=== PATIENT | female | born 1965 | race Caucasian/White ===

== ENCOUNTER 2020-04-08 05:26 | Inpatient (IN) | payer BC ==
[2020-04-08] MEDS ORDERED: Acetaminophen 500 MG Tab PO ONE (05:45)
[2020-04-08] MEDS ORDERED: Scopolamine 1.5 MG Transdermal Patch TOP ONE (05:45)
[2020-04-08] MEDS ORDERED: Celecoxib 200 MG Cap PO ONE (05:45)
[2020-04-08] MEDS ORDERED: Gabapentin 300 MG Cap PO ONE (05:45)
[2020-04-08] MEDS ORDERED: Diltiazem 120 MG Cap.CD PO ONE (06:00)
[2020-04-08] MEDS ORDERED: Dextrose 5%-Lactated Ringers 1,000 ML IV SCH (06:30)
[2020-04-08] MEDS ORDERED: cefOXitin 2 GM Vial ONE (06:36)
[2020-04-08] MEDS ORDERED: Propofol 200 MG/20 ML SDV ONE (07:05)
[2020-04-08] MEDS ORDERED: Rocuronium 50 MG/5 ML Vial ONE (07:05)
[2020-04-08] MEDS ORDERED: fentaNYL 250 MCG/5 ML SDV ONE ×2 (07:05→08:00)
[2020-04-08] MEDS ORDERED: Ondansetron 4 MG/2 ML SDV ONE (07:05)
[2020-04-08] MEDS ORDERED: Glycopyrrolate 0.2 MG/ML 5 ML MDV ONE (07:05)
[2020-04-08] MEDS ORDERED: Succinylcholine 200 MG/10 ML MDV ONE (07:05)
[2020-04-08] MEDS ORDERED: Neostigmine Methylsulfate 1 MG/ML 5 ML Syringe ONE (07:05)
[2020-04-08] MEDS ORDERED: Dexamethasone 4 MG/ML SDV ONE (07:05)
[2020-04-08] MEDS ORDERED: Albuterol/Ipratropium 3.0-0.5 MG/3 ML Neb Soln NEB ONE (07:15)
[2020-04-08] MEDS ORDERED: Ketamine 500 MG/5 ML MDV IV SCH (08:00)
[2020-04-08] MEDS ORDERED: Magnesium Sulfate 3 GM in Sodium Chloride 0.9% 100 ML IV SCH (08:00)
[2020-04-08] MEDS ORDERED: Ketamine 50 MG in Sodium Chloride 0.9% 49.5 ML IV SCH (08:00)
[2020-04-08] MEDS ORDERED: Labetalol 100 MG/20 ML MDV ONE (08:00)
[2020-04-08] MEDS ORDERED: hydrOXYzine HCL 100 MG/2 ML SDV IM ONE (10:06)
[2020-04-08] MEDS: Dextrose 5%-Lactated Ringers 1,000 ML IV SCH ×2 (10:45→19:54)
[2020-04-08] MEDS: Lactated Ringers 1,000 ML IV SCH (10:45)
[2020-04-08] MEDS ORDERED: Metoclopramide 10 MG/2 ML SDV IV PRN (10:50)
[2020-04-08] MEDS ORDERED: Cyclobenzaprine 10 MG Tab PO PRN (11:08)
[2020-04-08] MEDS: cefOXitin 2 GM in Sodium Chloride 0.9% 50 ML IV ONE ×2 (11:42→11:49)
[2020-04-08] MEDS ORDERED: hydrOXYzine HCL 100 MG/2 ML SDV IM PRN (12:00)
[2020-04-08] MEDS ORDERED: Acetaminophen 500 MG Tab PO PRN (12:00)
[2020-04-08] MEDS ORDERED: Glucagon,Human Recombinant 1 MG Vial IM PRN (12:00)
[2020-04-08] MEDS ORDERED: Pantoprazole 40 MG Vial IVPUSH SCH (12:00)
[2020-04-08] MEDS ORDERED: Labetalol 20 MG/4 ML Syringe IVPUSH PRN (12:00)
[2020-04-08] MEDS ORDERED: HYDROmorphone 1 MG/ML Syringe IV PRN (12:00)
[2020-04-08] MEDS ORDERED: Calcium Gluconate 10% 1 GM/10 ML SDV IVPUSH PRN (12:00)
[2020-04-08] MEDS ORDERED: diphenhydrAMINE 50 MG/ML SDV IVPUSH PRN (12:00)
[2020-04-08] MEDS ORDERED: Ondansetron 4 MG/2 ML SDV IVPUSH PRN (12:00)
[2020-04-08] MEDS ORDERED: oxyCODONE 5 MG Tab PO PRN (12:00)
[2020-04-08] MEDS ORDERED: 50% Dextrose in Water 50 ML Syringe IVPUSH PRN (12:00)
[2020-04-08] MEDS: HYDROmorphone 0.5 MG/0.5 ML Syringe IVPUSH PRN ×2 (12:47→20:48)
[2020-04-08] MEDS: Acetaminophen 500 MG Tab PO SCH ×2 (14:33→21:47)
[2020-04-08] MEDS: cefOXitin 2 GM in Sodium Chloride 0.9% 50 ML IV SCH ×2 (14:34→19:56)
[2020-04-08] MEDS ORDERED: MVI, Adult with Vitamin K 10 ML, Thiamine 200 MG, Chromium/Copper/Mang/Selen/Zn 1 ML in... IV SCH ×4 (16:00)
[2020-04-08] MEDS: Heparin Sodium 5,000 Units/ML Vial SUBCUT SCH (16:33)
[2020-04-08] MEDS: Insulin Lispro 100 Unit/ML 3 ML KwikPen SUBCUT PRN ×2 (16:40→21:46)
[2020-04-09] MEDS: Lactated Ringers 1,000 ML IV SCH (01:26)
[2020-04-09] MEDS: cefOXitin 2 GM in Sodium Chloride 0.9% 50 ML IV SCH ×2 (02:01→07:57)
[2020-04-09] MEDS ORDERED: Iopamidol 612 MG/ML 50 ML SDV PO ONE (02:08)
[2020-04-09] MEDS: HYDROmorphone 0.5 MG/0.5 ML Syringe IVPUSH PRN (02:44)
[2020-04-09] MEDS: Insulin Lispro 100 Unit/ML 3 ML KwikPen SUBCUT PRN (04:56)
[2020-04-09] MEDS: Heparin Sodium 5,000 Units/ML Vial SUBCUT SCH ×2 (04:56→15:24)
[2020-04-09] MEDS: Acetaminophen 500 MG Tab PO SCH ×3 (05:01→21:30)
[2020-04-09] MEDS ORDERED: Ondansetron 4 MG Tab.DIS PO PRN (07:38)
[2020-04-09] MEDS ORDERED: hydrOXYzine HCl 25 MG Tab PO PRN (07:40)
[2020-04-09] MEDS: Celecoxib 200 MG Cap PO SCH ×2 (08:00→21:30)
--- NOTE | 2020-04-09 09:11 | CR ---
[facility] HISTORY: Postbariatric surgery FINDINGS: Patient swallowed water-soluble contrast. Upright views of the abdomen show no evidence of extravasation or obstruction. There is a left upper quadrant drain. IMPRESSION: Status post bariatric surgery No extravasation or obstruction seen
[2020-04-09] MEDS: SCOPOLAMINE PATCH CHECK TOP SCH (10:40)
--- NOTE | 2020-04-09 10:55 | PN ---
DATE OF SERVICE: 04/09/2020 SUBJECTIVE: Nela is postoperative day 1. Vital signs have been stable. Upper GI was normal. Oral intake 840. Urine output 3600. CHIDI drain put out 130 mL of a light pink drainage. She has been up ambulating. Pain has been controlled per energy protocol. REVIEW OF SYSTEMS: Remainder of review of systems negative for any pertinent positives or negatives. OBJECTIVE: GENERAL: Nela is a pleasant 55-year-old female. VITAL SIGNS: Height is 5 feet 5 inches, weight is 234 pounds. TPR at 0751, 97.7, 75, 16. Blood pressure 134/61. HEENT: Negative. NECK: Supple. HEART: Regular rate and rhythm. LUNGS: Clear. ABDOMEN: Dressings dry and intact. Abdominal binder is on. CHIDI drain is as above. EXTREMITIES: Without peripheral edema. ASSESSMENT: Laparoscopic Michelle-en-Y gastric bypass surgery, liver biopsy, repair of diaphragmatic hernia for morbid obesity, hepatomegaly, and diaphragmatic hernia. Date of surgery 04/08/2020. Surgeon: Victoriano Calle MD. PLAN: 1. Decrease IV to D5 of lactated Ringer's to 100 mL per hour. 2. Dressing off, may shower. 3. Step 2 with no cereal, gastric bypass diet. 4. Atarax 25 mg q.4 hours p.r.n. pain. 5. Zofran ODT 4 mg every 4 hours p.r.n. nausea. 6. Communication order: 3 med cups per hour or 1 every 20 minutes, record at bedside. 7. We will evaluate p.r.n. or in a.m. Joelle Contreras PA-C /[id number]
[2020-04-09] MEDS ORDERED: Pantoprazole 40 MG Delayed-Release Granules 1 Packet PO SCH (11:00)
[2020-04-09] MEDS ORDERED: MVI, Adult with Vitamin K 10 ML, Thiamine 200 MG, Chromium/Copper/Mang/Selen/Zn 1 ML in... IV SCH ×4 (16:00)
[2020-04-10] MEDS: Heparin Sodium 5,000 Units/ML Vial SUBCUT SCH (05:08)
[2020-04-10] MEDS: Acetaminophen 500 MG Tab PO SCH (05:08)
[2020-04-10] MEDS: SCOPOLAMINE PATCH CHECK TOP SCH (08:22)
[2020-04-10] MEDS: Celecoxib 200 MG Cap PO SCH (08:22)
[2020-04-10] MEDS ORDERED: Cyanocobalamin (Vitamin B12) 1,000 MCG/ML SDV IM ONE (09:00)
--- NOTE | 2020-04-12 11:03 | DISCH ---
FINAL DIAGNOSES: 1. Morbid obesity. 2. Type 2 diabetes mellitus. 3. History of depression. 4. History of hyperlipidemia. 5. History of hypertension. 6. History of urinary retention. 7. Moderate obstructive sleep apnea. 8. Marked hepatomegaly. 9. Paraesophageal diaphragmatic hernia. OPERATIVE PROCEDURES: Done on 04/08/2020. 1. Laparoscopic Michelle-en-Y gastric bypass. 2. Fito-Cut needle liver biopsy. 3. Repair of paraesophageal diaphragmatic hernia. SUMMARY: This is a 55-year-old female presenting with longstanding morbid obesity and increasingly significant comorbidities. After preoperative evaluation and discussion, she did wish to proceed with a gastric bypass procedure. This was done on the day of admission without any difficulty. She had fairly marked hepatomegaly and liver biopsies were obtained which were pending and also had paraesophageal diaphragmatic hernia which was repaired concurrently. Postoperatively, the patient has done well. She is off her glipizide and running blood sugars in the 130 to 140 range, so her diabetes at this point is already going into remission, and otherwise she is able to tolerate step 2 diet. She should be following up with Joelle Contreras at [facility] on 04/19/2020. She should continue her usual home medications except we will hold the glipizide and we will have her hold the vitamins and other supplements until after the first appointment. She is taking Celebrex and Tylenol for pain and not requiring any narcotics at the time of discharge.
--- NOTE | 2020-04-13 13:29 | OR ---
DATE OF PROCEDURE: 04/08/2020 SURGEON: Victoriano Calle MD PREOPERATIVE DIAGNOSIS: Morbid obesity. POSTOPERATIVE DIAGNOSES: 1. Morbid obesity. 2. Marked hepatomegaly. 3. Paraesophageal diaphragmatic hernia. OPERATIVE PROCEDURE: 1. Laparoscopic Michelle-en-Y gastric bypass with long limb gastroenterostomy (41220). 2. Fito-Cut needle liver biopsy (85552). 3. Repair of paraesophageal diaphragmatic hernia (63311). ANESTHESIA: General. ELECTRICAL ESTIMATOR: Joelle Contreras PA-C INDICATIONS FOR PROCEDURE: This is a 55-year-old female presenting with longstanding morbid obesity and increasingly significant comorbidities. After preoperative evaluation and discussion, she wished to proceed with a gastric bypass procedure. Potential risks of the procedure including bleeding, infection, leaks from various GI tract closures, problems with bowel obstruction over time as well as the possibility of cardiopulmonary, septic, or hemorrhagic complications leading to were discussed, and the patient wishes to proceed. DETAILS OF PROCEDURE: The patient was taken to the operating room and placed in the supine position after general endotracheal anesthesia was induced. She was converted to a lithotomy position and the abdomen prepped and draped. At 15 cm inferior and 5 cm left of the xiphoid process, a transverse incision was made and the peritoneal cavity entered under direct vision with an Optiview trocar, inflated to 15 mmHg pressure with CO2. Laparoscope was reinserted. No underlying trocar insertion site injuries were seen. Following this, 5 additional trocars were placed across the upper and mid abdomen. Bilateral transversus abdominis plane blocks were placed. Initial examination showed marked hepatomegaly with the liver being roughly 2 to 3 times normal in terms of size and grossly fatty infiltrated. Fito- Cut needle biopsies were obtained from the left lobe of the liver. Minimal bleeding from the biopsy sites was controlled with electrocautery. The omentum was then divided in the midline up to the level of the transverse colon. This allowed identification of the small bowel to the ligament of Treitz. Small bowel was then traced out 150 cm distal to that point, was divided transversely with a TONY stapler. Small bowel was then traced out additional 150 cm where the [id number] enteroenterostomy was accomplished with internal firing of the Endo-TONY 60 mm stapler, common opening was closed transversely with the same stapler, angles of the anastomosis and mesenteric defect approximated with some 0 Ethibond stitch along with fibrin sealant. The divided end of Michelle limb was then from the mesentery for a few centimeters, which allowed an antecolic position of the Michelle limb up to the level of the gastroesophageal junction without tension. The liver was then retracted anteriorly and the patient was noted to have a moderate-sized paraesophageal diaphragmatic hernia. This contained some perigastric fat and a tongue of omentum. The hernia was reduced and the peritoneum overlying incised and reflected downward. Anterior repair of the diaphragmatic hernia with 0 Ethibond sutures reinforced with PTFE pledgets was then accomplished. Gastrointestinal balloon catheter was then inflated to 15 mL and pulled up snugly against the EG junction. The gastric wall over the apex balloon was then marked with electrocautery and balloon catheter deflated and pulled up from the esophagus. The lesser omental tissue adjacent to the gastric cardia was incised, allowing dissection behind the stomach at the level of the gastric cardia. The pouch formation was initiated with transverse firing of the TONY stapler at the level of the cauterized rose marie on the gastric cardia. The pouch was then completed with 2 additional firings of the TONY stapler up to and through the angle of His. Upon completion of the pouch, both staple lines were noted to be intact. The anvil of a 25 mm EEA stapler was then attached to the Morehouse sump type tube, that was brought down through the mouth, taken out through a small opening in the gastric pouch, allowing the anvil likewise to be pulled down to within the gastric pouch. The divided end of the Michelle limb was then opened and the main body of the EEA stapler was passed several centimeters into the lumen of small bowel, brought up the anvil and united with it, thus creating the gastrojejunostomy. Upon removal of the stapler, double donuts of mucosa were noted within it and the small bowel was closed off with a vascular staple line. Gastrojejunostomy was reinforced with some 3-0 Vicryl seromuscular stitch along with fibrin sealant. A leak test was accomplished with injection of 120 mL of air in the gastric pouch while it was submerged with cefoxitin-containing saline solution. No leaks were identified. Two Hair-Rubio drains were placed adjacent to the gastrojejunostomy, taken out through the subcostal trocar sites. No further problems noted. Trocars were removed, the peritoneal cavity deflated. Incisions were closed with some 4-0 Vicryl skin stitch and the drain was fixed with the same stitch. The patient was taken to the recovery room in satisfactory condition. Physician anatomic pathology assistant, Joelle Contreras, played an essential role in assisting in this case, helping to position the patient, retract structures as needed, as well as suturing and cutting sutures when indicated. Her presence improved patient safety and decreased operative time. Victoriano Calle MD /[id number]
== END 2020-04-10 08:30 | disposition home or self-care (01) | DRG 403 ==
LOC: JP.MS 05:26 → JP.SDS 05:26 → EDSTATUS 09:45 → JP.MS 09:50
PROVIDERS: ADMIT Surgery; ATTEND Surgery
PROC: 0D164ZA Bypass Stomach to Jejunum, Percutaneous Endoscopic Approach (ICD-10-PCS; principal; 2020-04-08)
PROC: 0FB24ZX Excision of Left Lobe Liver, Percutaneous Endoscopic Approach, Diagnostic (ICD-10-PCS; 2020-04-08)
PROC: 0BQT4ZZ Repair Diaphragm, Percutaneous Endoscopic Approach (ICD-10-PCS; 2020-04-08)
DX: E66.01 Morbid (severe) obesity due to excess calories (principal); E11.9 Type 2 diabetes mellitus without complications; F32.9 Major depressive disorder, single episode, unspecified; E78.5 Hyperlipidemia, unspecified; I10 Essential (primary) hypertension; R33.9 Retention of urine, unspecified; G47.33 Obstructive sleep apnea (adult) (pediatric); R16.0 Hepatomegaly, not elsewhere classified; K44.9 Diaphragmatic hernia without obstruction or gangrene; G47.00 Insomnia, unspecified; G43.909 Migraine, unspecified, not intractable, without status migrainosus; I83.93 Asymptomatic varicose veins of bilateral lower extremities; Z90.49 Acquired absence of other specified parts of digestive tract; Z98.890 Other specified postprocedural states; Z90.710 Acquired absence of both cervix and uterus; Z98.51 Tubal ligation status; Z79.84 Long term (current) use of oral hypoglycemic drugs; Z79.899 Other long term (current) drug therapy; Z68.39 Body mass index [BMI] 39.0-39.9, adult
CPT/HCPCS: 36415; 74240; 74240-26; 82962; 86850; 86900; 86901; 88307; 88313; 94640; A9270-GY; C9113; J0171; J0330; J0694; J1100; J1170; J1644; J1815; J1815-GY; J2405; J2704; J2710; J2795; J3010; J3410; J3411; J3420; J3475; J3490; J7050; J7120; J7121; J7620-GY; Q9967

== ENCOUNTER 2020-05-20 06:56 | Day surgery (SDC) | payer BC ==
[2020-05-20] MEDS ORDERED: Propofol 200 MG/20 ML SDV ONE (07:20)
[2020-05-20] MEDS ORDERED: Midazolam 1 MG/ML 2 ML SDV ONE (07:20)
[2020-05-20] MEDS ORDERED: fentaNYL 100 MCG/2 ML SDV ONE (07:20)
[2020-05-20] MEDS ORDERED: Cyanocobalamin (Vitamin B12) 1,000 MCG/ML SDV IM ONE (08:00)
[2020-05-20] MEDS ORDERED: Lactated Ringers 1,000 ML IV SCH (08:00)
[2020-05-20] MEDS ORDERED: Glycopyrrolate 0.2 MG/ML 2 ML SDV IVPUSH ONE (08:15)
[2020-05-20] MEDS ORDERED: Pantoprazole 40 MG Vial IVPUSH ONE (08:37)
[2020-05-20] MEDS ORDERED: MVI, Adult with Vitamin K 10 ML, Thiamine 200 MG, Chromium/Copper/Mang/Selen/Zn 1 ML in... IV ONE ×4 (09:30)
--- NOTE | 2020-05-25 17:27 | OR ---
DATE OF PROCEDURE: 05/20/2020 SURGEON: Victoriano Calle MD PREOPERATIVE DIAGNOSIS: Dysphagia status post Michelle-en-Y gastric bypass. POSTOPERATIVE DIAGNOSIS: Dysphagia status post Michelle-en-Y gastric bypass associated with: 1. Mild strictured gastrojejunostomy. 2. Erosion at esophagogastric junction. OPERATIVE PROCEDURE: Upper gastrointestinal endoscopy with dilation of gastrojejunostomy (33282). ANESTHESIA: IV sedation. INDICATION FOR PROCEDURE: This is a 55-year-old female status post Michelle-en-Y gastric bypass in March of this year presenting with dysphagia suggestive of possible stricture at gastrojejunostomy. Plan is to proceed with an upper GI endoscopy with dilation as indicated. Potential risks including bleeding and perforation were discussed, and the patient wishes to proceed. DETAILS OF PROCEDURE: The patient was taken to the operating room and placed in a left lateral decubitus position. IV sedation was administered after which the upper GI endoscope was passed orally through the length of the esophagus into the gastric pouch and from there through the gastrojejunostomy roughly 20 cm into the Michelle limb. The findings included a small erosion at the esophagogastric junction. This was associated with a general edema in that area. The scope could be passed through the anastomosis, although it was slightly tight. Given this, a Bard gastrointestinal catheter was centered across the anastomosis and inflated to 45-Thai size. This was held in position for 1 minute after which the balloon catheter was deflated and withdrawn. The area was then inspected and adequate dilation appeared to have occurred. Scope was then withdrawn and the procedure then concluded. The plan will be to start the patient on Protonix. She will be given Protonix 40 mg IV in the recovery room and then Protonix 40 mg daily x60 days. At this point, followup with Joelle Contreras will be set up for 2 months. However, the patient to call should she develop any recurrent problems with dysphagia in the interim. Victoriano Calle MD /[id number]
== END 2020-05-20 11:10 | disposition home or self-care (01) ==
LOC: JP.SDS 06:56
PROVIDERS: ATTEND Surgery
DX: K22.10 Ulcer of esophagus without bleeding (principal); K25.9 Gastric ulcer, unspecified as acute or chronic, without hemorrhage or perforation; K94.29 Other complications of gastrostomy; E78.5 Hyperlipidemia, unspecified; I10 Essential (primary) hypertension; E11.9 Type 2 diabetes mellitus without complications; Z68.34 Body mass index [BMI] 34.0-34.9, adult; Z98.84 Bariatric surgery status
CPT/HCPCS: 43245; C9113; J2250; J2704; J3010; J3411; J3420; J3490; J7120

== ENCOUNTER 2021-01-20 08:18 | Day surgery (SDC) | payer OTHER ==
[~2021-01-20 08:18] MED LIST: Midazolam 1 MG/ML 2 ML SDV ONE; Propofol 200 MG/20 ML SDV ONE; fentaNYL 100 MCG/2 ML SDV ONE
[2021-01-20] MEDS ORDERED: Dextrose 5%-Lactated Ringers 1,000 ML IV SCH (09:30)
--- NOTE | 2021-02-08 16:35 | OR ---
DATE OF PROCEDURE: 01/20/2021 SURGEON: Victoriano Calle MD PREOPERATIVE DIAGNOSIS: Mid abdominal pain with CAT scan showing possible thickening of proximal transverse colon. POSTOPERATIVE DIAGNOSES: 1. Mid abdominal pain with CAT scan showing possible thickening of proximal transverse colon. 2. Normal colonoscopic examination. OPERATIVE PROCEDURE: Flexible colonoscopy. ANESTHESIA: IV sedation. INDICATION FOR PROCEDURE: This is a 55-year-old Michelle-en-Y gastric bypass. The patient presenting with mid and upper abdominal pain that has been going on for several weeks and is somewhat intermittent and sometimes associated with an intolerance of oral intake, but other times she eats solid meals fairly well. The patient had a CT scan of the abdomen which showed thickening of the proximal transverse colon. The plan is to proceed with a colonoscopy for investigation of those findings that this is often a "overcall" by Radiology due to nondissection of the colon in that area, i.e., normal colonoscopic examination is found, was gone over with the patient. Otherwise, potential risks including bleeding and perforation were reviewed and the patient wishes to proceed. DETAILS OF PROCEDURE: The patient was taken to the operating room, placed in a left lateral decubitus position. IV sedation was administered, after which the digital rectal exam was performed and was unremarkable. Colonoscope was then passed into the rectum with retroflexion revealing uncomplicated hemorrhoidal columns. Scope was then easily passed to the level of the cecum. To that level, no abnormalities were noted. Specifically, there were no areas of edema or redness within the colonic mucosa, and no diverticula or hernia suggestive of neoplastic change. Scope was then withdrawn and the procedure then concluded. The patient was taken to the recovery room in satisfactory condition. At this point, the patient's symptoms appeared to be somewhat intermittent, and we will have her followup with Joelle Contreras PA-C in March. To call earlier if she develops increased pain or develops nausea and vomiting in the interim. Victoriano Calle MD /[id number]
== END 2021-01-20 10:51 | disposition home or self-care (01) ==
LOC: JP.SDS 08:18
PROVIDERS: ATTEND Surgery
DX: K64.9 Unspecified hemorrhoids (principal); K63.89 Other specified diseases of intestine; I10 Essential (primary) hypertension; E11.9 Type 2 diabetes mellitus without complications; E78.00 Pure hypercholesterolemia, unspecified; Z98.84 Bariatric surgery status
CPT/HCPCS: 45378; J2250; J2704; J3010; J7121

== ENCOUNTER 2021-09-23 06:34 | Day surgery (SDC) | payer OTHER ==
[2021-09-23] MEDS ORDERED: Cyanocobalamin (Vitamin B12) 1,000 MCG/ML SDV IM ONE (06:45)
[2021-09-23] MEDS ORDERED: Lidocaine 2% 5 ML SDV ONE (07:41)
[2021-09-23] MEDS ORDERED: Propofol 200 MG/20 ML SDV ONE (07:41)
[2021-09-23] MEDS ORDERED: Lactated Ringers 1,000 ML IV SCH (07:45)
[2021-09-23] MEDS ORDERED: Glycopyrrolate 0.2 MG/ML 2 ML SDV IVPUSH ONE (07:45)
[2021-09-23] MEDS ORDERED: Midazolam 1 MG/ML 2 ML SDV ONE (08:15)
[2021-09-23] MEDS ORDERED: fentaNYL 100 MCG/2 ML SDV ONE (08:16)
[2021-09-23] MEDS ORDERED: MVI, Adult with Vitamin K 10 ML, Thiamine 200 MG, Zinc/Copper/Manganese/Selenium 1 ML i... IV ONE ×4 (08:45)
--- NOTE | 2021-09-25 12:45 | OR ---
DATE OF PROCEDURE: 09/23/2021 SURGEON: Victoriano Calle MD PREOPERATIVE DIAGNOSIS: Epigastric pain status post Michelle-en-Y gastric bypass. POSTOPERATIVE DIAGNOSIS: Epigastric pain status post Michelle-en-Y gastric bypass with focal pouch gastritis and a single erosion. OPERATIVE PROCEDURE: Upper gastrointestinal endoscopy with biopsies of gastric pouch for CLOtest. ANESTHESIA: IV sedation. INDICATION FOR PROCEDURE: This is a 56-year-old female presenting with some ongoing epigastric pain. She presently is on Protonix 40 mg a day. She is status post Michelle-en-Y gastric bypass in March of 2020. The plan is to proceed with upper GI endoscopy with biopsies and/or dilation as indicated. Potential risks including bleeding and perforation were discussed and the patient wishes to proceed. DETAILS OF PROCEDURE: The patient was taken to the operating room and placed in a left lateral decubitus position. IV sedation was administered after which the upper GI endoscope was passed orally through the length of the esophagus and into the gastric pouch, from there through the gastrojejunostomy roughly 20 cm into the Michelle limb. Hypopharynx, larynx, upper esophageal sphincter, and esophageal body were unremarkable. At the EG junction, this likewise was unremarkable. Within the pouch, there was some peripheral redness and a single erosion ranging around 2 to 3 mm which was covered with some fibrinous exudate. There was no stricturing or marginal ulcer present at the gastrojejunostomy and visualized portions of the Michelle limb were unremarkable. At this point, biopsies were obtained from the gastric pouch, sent for CLOtest for H. pylori. Minimal bleeding from the biopsy sites was seen and the procedure then concluded. At this point, we will add Pepcid 40 mg at bedtime to the patient's medical regimen. She will be set up for followup with Joelle Contreras in [facility] in 1 month which may be a virtual visit. If she continues to be symptomatic on the regimen including Pepcid, one might consider a cytoprotective agent such as Carafate and also perhaps recheck an H. pylori status with H. pylori breath test should the CLOtest on today's exam be negative. One additional note on this patient is in March, she had a ferritin level of 27. We rechecked that today and it was up to 67, so no iron infusion was necessary. Victoriano Calle MD /[id number]
== END 2021-09-23 09:55 | disposition home or self-care (01) ==
LOC: JP.SDS 06:34
PROVIDERS: ATTEND Surgery
DX: K29.70 Gastritis, unspecified, without bleeding (principal); R10.13 Epigastric pain; K25.9 Gastric ulcer, unspecified as acute or chronic, without hemorrhage or perforation; G47.33 Obstructive sleep apnea (adult) (pediatric); E78.5 Hyperlipidemia, unspecified; G43.909 Migraine, unspecified, not intractable, without status migrainosus; E11.9 Type 2 diabetes mellitus without complications; E66.9 Obesity, unspecified; F32.A Depression, unspecified; F41.9 Anxiety disorder, unspecified; N17.9 Acute kidney failure, unspecified; Z79.899 Other long term (current) drug therapy; Z98.84 Bariatric surgery status; Z68.28 Body mass index [BMI] 28.0-28.9, adult
CPT/HCPCS: 36415; 43239; 82728; 82746; 85027; 87081; J2250; J2704; J3010; J3411; J3420; J3490; J7120